=== PATIENT | male | born 1940 | race Caucasian/White ===

== ENCOUNTER 2018-09-28 13:49 | Emergency (ER) | payer MEDICARE ==
[2018-09-28] MEDS ORDERED: SODIUM CHLORIDE 0.9% (FLUSH) 10 ML SYG IV PRN (14:25)
--- NOTE | 2018-09-28 14:41 | ED.PDOC ---
History of Present Illness - General Chief Complaint: Diabetic Complaint Stated Complaint: glucose elevated Time Seen by Provider: 09/28/18 14:08 Source: patient, family - History of Present Illness Initial Comments: PT PRESENTS TO THE ED WITH COMPLAINT OF ELEVATED BLOOD GLUCOSE DURING ROUTINE CHECK AT HOME. PTS BLOOD GLUCOSE WAS 388. PT REPORTS EATING PANCAKES, BISCUITS AND GRAVY FOR BREAKFAST WITH CHICKEN WINGS AND SALAD FOR LUNCH. PT DENIES ANY SYMPTOMS SUCH WEAKNESS, POLYDIPSIA, POLYURIA, OR BLURRED VISION. PT DOES COMPLAIN OF CHRONIC LOOSE STOOL FOR THE PAST SEVERAL MONTHS. Severity: moderate Improving Factors: nothing Worsening Factors: nothing Associated Symptoms: denies symptoms Allergies/Adverse Reactions: Allergies Propoxyphene [From Darvon] Adverse Reaction (Verified 09/28/18 14:26) Home Medications: Ambulatory Orders Dicyclomine HCl [Bentyl] 20 mg PO Q6HRS PRN #20 tab 09/28/18 Review of Systems - Review of Systems Constitutional: Denies: chills EENTM: Denies: nose congestion, throat pain Respiratory: Denies: cough, short of breath Cardiology: Denies: chest pain, palpitations, syncope Gastrointestinal/Abdominal: States: diarrhea. Denies: abdominal pain, nausea, vomiting Genitourinary: Denies: dysuria, frequency, hematuria Musculoskeletal: Denies: joint pain, joint swelling Skin: Denies: dryness, lesions Neurological: Denies: headache, numbness Endocrine: Denies: increased thirst, increased urine Past Medical History (General) - Patient Medical History Hx Stroke: Yes Hx Cardiac Disorders: Yes - [place], stent x9, afib Hx Hypertension: Yes Hx Diabetes: Yes Surgical History: cholecystectomy, other - Vaccination History Hx Influenza Vaccination: Yes Hx Pneumococcal Vaccination: Yes - Social History Hx Tobacco Use: No Hx Alcohol Use: No Hx Substance Use: No Hx Substance Use Treatment: No Hx Depression: No - Female History Patient is a Female of Child Bearing Age (10 -59 yrs old): No Family Medical History - Family History Mother Family History: Unknown Physical Exam - Physical Exam General Appearance: Alert, No apparent distress, Well Developed, Well Groomed, Well Hydrated Eye Exam: bilateral normal Ears, Nose, Throat: hearing grossly normal Neck: non-tender, full range of motion Respiratory: lungs clear, normal breath sounds, no respiratory distress Cardiovascular/Chest: regular rate, rhythm, no murmur Gastrointestinal/Abdominal: non tender, soft Extremity: non-tender, normal inspection Neurologic: alert, normal mood/affect Skin Exam: normal color, warm/dry Progress - Progress Progress: 09/28/18 16:45 PT RESTING COMFORTABLY, LABS AND DIAGNOSTICS DISCUSSED. DIABETIC DIET CHOICES DISCUSSED. WILL D/C ON BENTYL FOR LOOSE STOOL. - Results/Orders Results/Orders: Laboratory Tests 09/28/18 09/28/18 09/28/18 14:36 14:36 15:21 WBC 6.7 RBC 4.92 Hgb 13.3 L Hct 40.8 L MCV 82.8 MCH 27.0 MCHC 32.6 L RDW 15.6 H Plt Count 165 MPV 9.5 Absolute Neuts (auto) 3.90 Absolute Lymphs (auto) 1.60 Absolute Monos (auto) 0.90 H Absolute Eos (auto) 0.20 Absolute Basos (auto) 0.10 Neutrophils % 57.2 Lymphocytes % 24.0 Monocytes % 14.0 H Eosinophils % 3.7 Basophils % 1.1 Normal RBC Morphology 1+giant platelets Sodium 140 Potassium 3.7 Chloride 102 Carbon Dioxide 29 Anion Gap 12.7 BUN 28 H Creatinine 1.25 BUN/Creatinine Ratio 22.4 H Random Glucose 268 H Serum Osmolality 294.3 Calcium 8.4 Total Bilirubin 0.6 Direct Bilirubin 0.1 Indirect Bilirubin 0.5 AST 33 ALT 27 Alkaline Phosphatase 82 Serum Total Protein 7.5 Albumin 3.8 Urine Color Yellow Urine Appearance Clear Urine pH 5.5 Ur Specific [place] 1.020 Urine Protein 30 Urine Glucose (UA) 250 H Urine Ketones Negative Urine Blood Negative Urine Nitrite Negative Urine Bilirubin Negative Urine Urobilinogen 0.2 Ur Leukocyte Esterase Negative Urine RBC 0-1 Urine WBC 0-1 Ur Epithelial Cells 0-1 Urine Bacteria Rare Departure - Departure Clinical Impression: Hyperglycemia due to type 2 diabetes mellitus, Diarrhea, Volume depletion Time of Disposition: 16:44 Disposition: Discharge to Home or Self Care Condition: Good Departure Forms: ED Discharge - Pt. Copy, Patient Portal Self Enrollment Instructions: DI for Diabetes Type 2, Hyperglycemia, Adult (DC), Diarrhea and Traveler's Diarrhea, Adult (DC) Referrals: Sen Cr MD [Primary Care Provider] - 1-5 Days Prescriptions: Dicyclomine HCl [Bentyl] 20 mg PO Q6HRS PRN #20 tab PRN Reason: Diarrhea Home Medications: Ambulatory Orders Dicyclomine HCl [Bentyl] 20 mg PO Q6HRS PRN #20 tab 09/28/18
[2018-09-28] MEDS ORDERED: SODIUM CHLORIDE 0.9% 1000ML 1,000 ML IVS ONE (15:17)
[2018-09-28] MEDS ORDERED: HYOSCYAMINE SULFATE 0.5 MG/ML VIAL IV ONE (15:18)
[2018-09-28 16:07] VITALS: O2SAT 99
[2018-09-28 17:26] VITALS: BP 130/76; TEMP 98
== END 2018-09-28 17:26 | disposition home or self-care (01) ==
LOC: ER 13:49
DX: E11.65 Type 2 diabetes mellitus with hyperglycemia (principal); R19.7 Diarrhea, unspecified; E86.9 Volume depletion, unspecified; I10 Essential (primary) hypertension; I25.2 Old myocardial infarction; I48.91 Unspecified atrial fibrillation; Z95.5 Presence of coronary angioplasty implant and graft; Z86.73 Personal history of transient ischemic attack (TIA), and cerebral infarction without residual deficits; Z79.899 Other long term (current) drug therapy; Z88.8 Allergy status to other drugs, medicaments and biological substances
CPT/HCPCS: 80048; 80076; 81001; 82948; 85025; J7030

== ENCOUNTER 2019-09-13 21:20 | Emergency (ER) | payer MEDICARE, OTHER ==
[2019-09-13] MEDS ORDERED: SODIUM CHLORIDE 0.9% (FLUSH) 10 ML SYG IV PRN (21:30)
[2019-09-13] MEDS ORDERED: SODIUM CHLORIDE 0.9% 1000ML 1,000 ML IVS PRN (21:30)
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
[2019-09-13 23:41] VITALS: TEMP 96.5
[2019-09-14 00:05] VITALS: BP 152/109; O2SAT 95
== END 2019-09-14 00:05 | disposition short-term general hospital (02) ==
LOC: ER 21:20
DX: S06.6X9A Traumatic subarachnoid hemorrhage with loss of consciousness of unspecified duration, initial encounter (principal); I48.91 Unspecified atrial fibrillation; I45.2 Bifascicular block; R41.0 Disorientation, unspecified; M47.812 Spondylosis without myelopathy or radiculopathy, cervical region; I25.2 Old myocardial infarction; I10 Essential (primary) hypertension; E11.9 Type 2 diabetes mellitus without complications; Z88.8 Allergy status to other drugs, medicaments and biological substances; Z86.73 Personal history of transient ischemic attack (TIA), and cerebral infarction without residual deficits; Z95.5 Presence of coronary angioplasty implant and graft; V43.92XA Unspecified car occupant injured in collision with other type car in traffic accident, initial encounter; Y92.410 Unspecified street and highway as the place of occurrence of the external cause
CPT/HCPCS: 70450; 71045; 72125; 80053; 80307; 80320; 81001; 82550; 82553; 84484; 85025; 85610; 85730; 87086; 93005; J7030

== ENCOUNTER 2019-12-04 09:56 | Emergency (ER) | payer MEDICARE ==
[2019-12-04] MEDS ORDERED: SODIUM CHLORIDE 0.9% 1000ML 1,000 ML IVS ONE (10:15)
[2019-12-04] MEDS ORDERED: cefTRIAXone SODIUM 2 GM in SODIUM CHL 0.9% 100ML MINI-BAG 100 ML IVPB ONE (10:15)
[2019-12-04] MEDS ORDERED: SODIUM CHLORIDE 0.9% (FLUSH) 10 ML SYG IV PRN (10:15)
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
[2019-12-04] MEDS ORDERED: SODIUM CHLORIDE 0.9% 1000ML 1,000 ML ONE (10:32)
[2019-12-04] MEDS ORDERED: cefTRIAXone SODIUM 1 GM VIAL ONE (10:38)
[2019-12-04] MEDS ORDERED: SODIUM CHL 0.9% 100ML MINI-BAG 100 ML IVPB ONE (10:41)
--- NOTE | 2019-12-04 11:10 | RAD ---
EXAM DESCRIPTION: Chest,1 View CLINICAL HISTORY: Hypoxia FINDINGS/ IMPRESSION: Prior cardiac surgery. Cardiomegaly. Vascular congestion. Subtle indistinctness of the vascular markings may be early perihilar interstitial edema. No alveolar consolidation or effusion. No pneumothorax Electronically signed by: Pal Workman MD 12/04/2019 11:08 AM CDT
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
--- NOTE | 2019-12-04 13:46 | CT ---
EXAM DESCRIPTION: CTA Chest CLINICAL HISTORY: hypoxia, elevated d-dimer COMPARISON: None. TECHNIQUE: Postcontrast CT images of the chest are obtained using pulmonary embolism imaging protocol. Three-D MIP reconstructed images of the arterial vasculature are obtained. Coronal and sagittal reconstructed images of the also provided. This exam was performed according to our departmental dose-optimization program, which includes automated exposure control, adjustment of the mA and/or kV according to patient size and/or use of iterative reconstruction technique . FINDINGS: The heart is enlarged. Severe coronary artery calcifications. Occlusive device in the region of the left atrial appendage. Postsurgical changes from CABG. Poor opacification of the thoracic aorta. Moderate calcifications of the thoracic aorta. Adequate opacification of the pulmonary arteries. Images are mildly degraded by patient breathing motion artifact limiting detailed evaluation of the mid to distal branches. No filling defects or emboli are seen in the pulmonary arteries. Small left pleural effusion in the dependent portion of the chest. Trace right pleural effusion. Visualized upper abdomen shows mild reflux of contrast into the hepatic veins. Cholecystectomy changes are seen. Lungs are hypoaerated. Mild prominence of the pulmonary vascularity. Mild enhancing compressive atelectasis in the left lower lobe is seen with mild peripheral interstitial nodular changes in the right lower lobe. Noncalcified pulmonary nodule right lower lobe image 180 of series 5 measures 5 mm. Noncalcified pulmonary nodule in the inferior right upper lobe measuring 10 mm. This nodule is adjacent to the oblique fissure. Ill-defined 5 mm noncalcified pulmonary nodules in the right upper lobe are also seen. Osseous structures show no aggressive bony lesions. IMPRESSION: No CTA evidence of pulmonary embolism. Patient breathing motion artifact limits evaluation of the mid to distal branches. Small left greater than right bilateral pleural effusions. Mild pulmonary vascular congestion is seen with cardiomegaly and postsurgical changes from CABG. Multiple pulmonary nodules. Most severe: 10.0 mm solid pulmonary nodule within the upper lobe. Recommend a non-contrast Chest CT at 3-6 months, then consider another non-contrast Chest CT at 18-24 months. These guidelines do not apply to immunocompromised patients and patients with cancer. Follow up in patients with significant comorbidities as clinically warranted. For lung cancer screening, adhere to Lung-RADS guidelines. Reference: Radiology. 2017; 284(1):228-43. Electronically signed by: Dexter Carmen MD 12/04/2019 1:45 PM CDT
[2019-12-04 17:02] VITALS: BP 150/99; TEMP 97.2; O2SAT 96
== END 2019-12-04 17:10 | disposition short-term general hospital (02) ==
LOC: ER 09:56
DX: R41.82 Altered mental status, unspecified (principal); R79.89 Other specified abnormal findings of blood chemistry; J90 Pleural effusion, not elsewhere classified; D64.9 Anemia, unspecified; I25.2 Old myocardial infarction; I48.91 Unspecified atrial fibrillation; I50.9 Heart failure, unspecified; I11.0 Hypertensive heart disease with heart failure; E11.9 Type 2 diabetes mellitus without complications; K21.9 Gastro-esophageal reflux disease without esophagitis; Z86.73 Personal history of transient ischemic attack (TIA), and cerebral infarction without residual deficits; Z79.4 Long term (current) use of insulin; Z79.899 Other long term (current) drug therapy; Z79.82 Long term (current) use of aspirin; Z88.8 Allergy status to other drugs, medicaments and biological substances
CPT/HCPCS: 36415; 70450; 71045; 71275; 80053; 81001; 82550; 82553; 83605; 83735; 84484; 85025; 85379; 85610; 85730; 87040; 87502; 93005; J0696; J7030; J7050